=== PATIENT | male | born 1960 | race Two or more races ===

== ENCOUNTER 2025-05-21 14:18 | Emergency (ER) | payer BC, MEDICARE ==
[2025-05-21 15:17] LABS: Hematocrit 35.6 % (42.0-52.0); Hemoglobin 12.4 g/dL (14.0-18.0); Mean Corpuscular Hemoglobin 27.9 pg (27.0-31.0); Mean Corpuscular Volume 80.1 fl (78.0-98.0); Platelet Count 319 10x3/uL (130-400); Red Blood Cell (RBC) Count 4.44 mill/uL (4.70-6.10); White Blood Cell (WBC) Count 9.2 10x3/uL (4.8-10.8)
[2025-05-21 15:25] LABS: Troponin I 0.031 ng/mL (< 0.028)
[2025-05-21 15:27] LABS: ALT (SGPT) 17 U/L (Less than 45); AST (SGOT) 18 U/L (11-34); Albumin 3.9 g/dL (3.1-4.5); Alkaline Phosphatase 97 U/L (40-110); Anion Gap 27 mmol/L (10-20); BUN (Urea Nitrogen) 75 mg/dL (8.4-25.7); Bilirubin, Total 0.5 mg/dL (0.3-1.2); Calc. Creatinine Clearance 0 mL/min (70-130); Calcium 9.8 mg/dL (7.8-10.44); Carbon Dioxide 18 mmol/L (23-31); Chloride 95 mmol/L (98-107); Globulin 3.9 g/dL (2.4-3.5); Glucose 278 mg/dL (80-115); Potassium 3.9 mmol/L (3.5-5.1); Sodium 136 mmol/L (136-145)
[2025-05-21 15:34] LABS: MDiff Complete? YES
[2025-05-21 16:02] LABS: Platelet Adequacy Comment Appears Adequate
[2025-05-21 16:03] LABS: Microcytosis SLIGHT = 6-15 cells (100X) (0-5/hpf)
[2025-05-21 17:46] LABS: Glucose, Urine (Dipstick) 100 mg/dL (Negative); Leukocyte Negative (Negative); Protein, Urine (Dipstick) > or equal to 300 mg/dL (Neg-Trace); Specific Gravity, Urine 1.025 (1.005-1.030)
[2025-05-21 18:01] LABS: CAUTI Indications for Culture Alt mental st,lethar
[2025-05-21 18:03] LABS: Bacteria/HPF 3+ HPF (None Seen)
[2025-05-21 18:19] LABS: Urine Culture Reflex No No
== END 2025-05-21 19:16 | disposition home or self-care (01) ==
LOC: NAV ERS 14:18
DX: N39.0 Urinary tract infection, site not specified (principal); E78.2 Mixed hyperlipidemia; I12.9 Hypertensive chronic kidney disease with stage 1 through stage 4 chronic kidney disease, or unspecified chronic kidney disease; N18.5 Chronic kidney disease, stage 5; E11.22 Type 2 diabetes mellitus with diabetic chronic kidney disease; Z79.899 Other long term (current) drug therapy
CPT/HCPCS: 71046; 80053; 81001; 84484; 85025; 93005; 96360; J7030